=== PATIENT | male | born 1985 | race Caucasian/White ===

== ENCOUNTER 2019-08-06 19:39 | Emergency (ER) | payer OTHER ==
[~2019-08-06] VITALS: Ht 188 cm; Wt 120.2 kg
[~2019-08-06 19:39] MED LIST: EFFEXOR XR150 MG PO; HYDROCHLOROTHIA25 MG PO; LISINOPRIL20 MG PO; NIACIN500 M1 PO; TRAZODONE HCL150 MG PO
[2019-08-06] MEDS ORDERED: LIPITOR20 MG PO (19:50)
[2019-08-06] MEDS ORDERED: NORVASC10 MG PO (19:50)
[2019-08-06] MEDS ORDERED: METOPROLOL SUC100 MG PO (19:51)
[2019-08-06] MEDS ORDERED: REMERON30 MG PO (19:51)
[2019-08-06] MEDS ORDERED: FENOFIBRATE145 MG PO (19:51)
[2019-08-06] MEDS ORDERED: BUSPIRONE HCL10 MG PO (19:52)
== END 2019-08-06 20:59 | disposition home or self-care (01) ==
LOC: ED 19:39
DX: S61.212A Laceration without foreign body of right middle finger without damage to nail, initial encounter (principal); I10 Essential (primary) hypertension; E78.5 Hyperlipidemia, unspecified; F32.9 Major depressive disorder, single episode, unspecified; Z87.891 Personal history of nicotine dependence; Z79.899 Other long term (current) drug therapy; X58.XXXA Exposure to other specified factors, initial encounter
CPT/HCPCS: 12002; 73140; 99283-25